=== PATIENT | male | born 1985 | race Caucasian/White ===

== ENCOUNTER 2019-02-16 20:32 | Emergency (ER) | payer SELFPAY ==
[2019-02-16] MEDS ORDERED: Lidocaine 1% w/Epinephrine 1:100K 30 ML VIAL ONE (20:49)
[2019-02-16] MEDS ORDERED: Adacel (T-DAP) 0.5 ML SYRINGE ONE (21:06)
[2019-02-16] MEDS ORDERED: Amoxicillin/Potassium Clav 875 MG TAB ONE (21:06)
== END 2019-02-16 21:50 | disposition home or self-care (01) ==
LOC: NAV ERS 20:32
DX: S40.861A Insect bite (nonvenomous) of right upper arm, initial encounter (principal); L02.413 Cutaneous abscess of right upper limb; Z23 Encounter for immunization; W57.XXXA Bitten or stung by nonvenomous insect and other nonvenomous arthropods, initial encounter
CPT/HCPCS: 10061; 90715; J2001